=== PATIENT | male | born 1955 | race Caucasian/White ===

== ENCOUNTER 2023-03-24 13:32 | Outpatient (CLI) | payer MEDICARE | END 2023-03-24 13:33 | disposition home or self-care (01) | LOC: CSHCT 13:32 | PROVIDERS: ATTEND Family Medicine | DX: Z12.2 Encounter for screening for malignant neoplasm of respiratory organs (principal); Z87.891 Personal history of nicotine dependence; K76.0 Fatty (change of) liver, not elsewhere classified; N62 Hypertrophy of breast | CPT/HCPCS: 71271; 80061; 83036; G0103; 36415; 80053; 84443; 85025 ==